=== PATIENT | female | born 1935 | race Caucasian/White ===

== ENCOUNTER → 2019-01-08 | Outpatient (CLI) | payer OTHER ==
[~2019-01-08] MED LIST: ESCITALOPRAM OX10 MG PO; FUROSEMIDE40 MG PO; LISINOPRIL20 MG PO; LORAZEPAM0.5 MG PO
[2019-01-08 10:50] LABS: BASO % 0.4 % (0.0-1.0); EOS # 0.1 10*3/uL (0.0-0.4); EOS % 1.3 % (1.0-4.0); HEMOGLOBIN 12.3 g/dl (12.0-16.0); LYMPH # 1.2 10*3/uL (1.3-4.4); LYMPH % 12.7 % (27.0-41.0); MEAN CORPUSCULAR HGB 29.6 pg (27.0-31.0); MEAN CORPUSCULAR HGB CONC 31.5 g/dl (33.0-37.0); MEAN PLATELET VOLUME 11.3 fl (9.6-12.3); MONO # 0.8 10*3/uL (0.1-1.0); NEUT # 7.3 10*3/uL (2.3-7.9); NEUT % 76.6 % (47.0-73.0); PLATELET COUNT AUTOMATED 204 10*3/uL (130-400); RED BLOOD COUNT 4.15 10*6/uL (4.10-5.10); WHITE BLOOD COUNT 9.5 10*3/uL (4.8-10.8)
[2019-01-08 11:02] LABS: ALBUMIN 3.9 gm/dl (3.1-4.5); ALKALINE PHOSPHATASE 79 U/L (45-117); BUN 18 mg/dl (7-24); CHLORIDE 108 mmol/L (98-107); CHOLESTEROL 192 mg/dL (<200); CREATININE 1.03 mg/dL (0.55-1.02); POTASSIUM 4.4 mmol/L (3.5-5.1); SGOT/AST 13 IU/L (3-35); SGPT/ALT 20 U/L (12-78); SODIUM 141 mmol/L (136-145); TRIGLYCERIDES 116 mg/dl (<150); VLDL CHOLESTEROL 23 mg/dL (6-40)
[2019-01-08 11:10] LABS: HDL CHOLESTEROL 56 mg/dl (40-60); LDL CHOLESTEROL 113 mg/dL (9-159)
== END | disposition home or self-care (01) ==
LOC: LAB 10:02
PROVIDERS: Family Medicine
DX: E78.00 Pure hypercholesterolemia, unspecified (principal); R53.83 Other fatigue; I10 Essential (primary) hypertension

== ENCOUNTER 2019-03-21 12:22 | Inpatient (IN) | payer OTHER ==
[~2019-03-21] VITALS: Ht 162.5 cm; Wt 82.8 kg
--- NOTE | ~2019-03-21 | PR ---
[place], [place] PROGRESS NOTE [id number] UNIT #: [id number] ROOM: 505 DOCTOR: JORJE MUNOZ MD BIRTHDATE: [birth year] DOS: 03/22/2019 SUBJECTIVE: The patient without precordial chest pains or discomfort anymore. Cardiac enzymes were improving and she is scheduled for a cardiac stress test tomorrow. OBJECTIVE: VITAL SIGNS: Blood pressure 102/61, heart rate 69 beats per minute, breathing 18 times per minute, temperature 98 degrees Fahrenheit. HEENT AND NECK: Exam within normal limits. CARDIOVASCULAR SYSTEM: Heart rate is regular in rate and rhythm. S1 and S2 normally audible. LUNGS: Clear to auscultation. ABDOMEN: Soft, nontender. No obvious organomegaly. Bowel sounds are present. EXTREMITIES: Without significant cyanosis or edema. IMPRESSION: 1. The patient with minimally positive cardiac enzymes, troponin I levels, scheduled for a cardiac stress test tomorrow. She is asymptomatic now. Dr. Phillip, her yard hostler is following. 2. Major depression, recurrent, mild, treated and controlled with Lexapro. 3. Benign essential hypertension, treated and controlled with lisinopril. 4. Generalized anxiety disorder. The patient remains on lorazepam as needed. 5. Non-ST segment elevation acute myocardial infarction. The patient is scheduled for cardiac stress testing tomorrow. JORJE MUNOZ MD CM:PNTRANS 1523 0021 JORJE MUNOZ MD 03/23/19 0021 interface
--- NOTE | ~2019-03-21 | ST ---
[place], [place] EXERCISE STRESS TEST REPORT NAME: SERGIO YANES UNIT #: [id number] ROOM: 505 DOCTOR: TAMMY TELLO,JORJE Kelley BIRTHDATE: [birth year] DOS: 03/23/2019 LEXISCAN CARDIOLITE STRESS TEST The patient presently admitted with minimally elevated cardiac enzymes and recurrent precordial chest pains and chest pressure, was tested with a Lexiscan Cardiolite stress test. The patient's baseline EKG was normal, showed normal sinus rhythm with a heart rate of 65 beats per minute, normal cardiac axis, no significant ST-T abnormality. The patient was injected with Lexiscan and remained in normal sinus rhythm without any acute ST-T abnormality. The patient was injected with 0.4 mg of IV Lexiscan and 40 seconds later with Cardiolite nuclear injection. Heart rate ranged between 65-98 beats per minute and blood pressure ranged between 98 systolic over 60 diastolic to 140 systolic over 62 diastolic. The patient mostly remained asymptomatic. No angina symptoms. IMPRESSION: 1. Normal EKG part of the Lexiscan Cardiolite stress test. 2. Nuclear scan results to be reported by clinical trials specialist later today. JORJE MUNOZ MD CM:STRESS:EXERCISE STRESS TEST REPORT [id number] JORJE MUNOZ MD
--- NOTE | ~2019-03-21 | EKG ---
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
--- NOTE | ~2019-03-21 | EKG ---
[place], [place] ELECTROCARDIOGRAM REPORT NAME: SERGIO YANES UNIT #: [id number] ROOM: 505 DOCTOR: ZEENAT DRAFT REPORT BIRTHDATE: [birth year] [facility] Test Date: 2019-03-21 Test Time: 12:29:59 Pat Name: SERGIO YANES Department: Room: 505 Gender: F Curer Acid Drum: Armida Warren : 1935 Requested By: JOANNE LIU Order Number: [id number] Reading MD: Harsha Carlson Measurements Intervals [place] Rate: 72 P: 72 MI: 209 QRS: -44 QRSD: 111 T: 86 QT: 401 QTc: 439 Interpretive Statements Sinus rhythm LVH with IVCD, LAD and secondary repol abnrm No previous ECG available for comparison Electronically Signed On 03-21-2019 12:38:37 PDT by Harsha Carlson CM:EKGRPT:ELECTROCARDIOGRAM REPORT [id number] JOANNE EPPERSON DRAFT REPORT JOANNE LIU MD
--- NOTE | ~2019-03-21 | WRIGHTHP ---
[place], [place] PATIENT HISTORY AND PHYSICAL EXAM NAME: SERGIO YANES [facility] #: [id number] UNIT #: [id number] ROOM: [facility] DOCTOR: JORJE MUNOZ MD BIRTHDATE: [birth year] DOS: 03/21/2019 HISTORY OF PRESENT ILLNESS: The patient is an 83-year-old female with a past medical history of: 1. Generalized anxiety disorder. 2. Major depression, recurrent, mild. Generalized anxiety disorder, presented to the Emergency Department with recurrent complaints of chest discomfort and indigestion feeling with shortness of breath episodes recurrent for 3 days. The patient's cardiac enzymes were found to be elevated to 0.28 and she was admitted to a monitored bed with Cardiology on consult. The patient is not having these symptoms anymore. No GI or urinary symptoms other than mentioned above. REVIEW OF SYSTEMS: RESPIRATORY: Occasional shortness of breath with chest discomfort precordial. No nausea, vomiting or diarrhea. CARDIOVASCULAR SYSTEM: Recurrent indigestion and chest discomfort with shortness of breath for 3 days. FAMILY HISTORY: Noncontributory. HOME MEDICATIONS: Furosemide, Lexapro, lisinopril, lorazepam. FAMILY HISTORY: Noncontributory. SOCIAL HISTORY: Denies smoking cigarettes, alcohol and drug abuse. ALLERGIES: No known drug allergies. PHYSICAL EXAMINATION: GENERAL: Alert, oriented x 3, in no visible distress, moderately obese, BMI of 31.3. HEENT AND NECK: Extraocular movements are intact. Sclerae are anicteric. Oral mucosa is moist and clean. No obvious facial weakness. Neck is supple without any lymphadenopathy. No thyromegaly. No JVD. No carotid arterial bruits. LUNGS: Clear to auscultation. No wheezing. No rhonchi. CARDIOVASCULAR SYSTEM: Heart rate is regular in rate and rhythm. S1 and S2 normally audible. No significant murmur or any other abnormal cardiac sounds. ABDOMEN: Soft, nontender. No obvious organomegaly. Bowel sounds are present. No obvious herniation. EXTREMITIES: Without significant cyanosis or edema. Warm to touch. CENTRAL NERVOUS SYSTEM: Alert and oriented x 3. Cranial nerves II-XII are intact. Speech is normal. The patient is able to move all extremities. Normal muscle strength. Deep tendon reflexes are equal on both sides. Plantars were downgoing. LABORATORY DATA: Troponin level of 0.283. Chest x-ray without acute abnormality. BUN and creatinine 28 and 1.03, hemoglobin 11.2. [place], [place] PATIENT HISTORY AND PHYSICAL EXAM NAME: SERGIO YANES UNIT #: [id number] ROOM: [facility] DOCTOR: JORJE MUNOZ MD BIRTHDATE: [birth year] IMPRESSION: 1. Acute non-ST segment elevation myocardial infarction with slight elevation of troponin I level. Cardiology consulted to follow the patient. Her clinical account specialist is Dr. Phillip. The patient probably needs a heart catheterization. 2. Major depression, recurrent, mild, treated and controlled with Lexapro. 3. Benign essential hypertension, treated and controlled with lisinopril. 4. Generalized anxiety disorder, treated with lorazepam. JORJE MUNOZ MD CM:HISPHYS:PATIENT HISTORY AND PHYSICAL EXAMINATION 175 [id number] JORJE MUNOZ MD 03/21/191829 interface
--- NOTE | ~2019-03-21 | CON ---
[place], [place] REPORT OF CONSULTATION NAME: SERGIO YANES UNIT #: [id number] ROOM: 505 DOCTOR: ANTONETTE SANCHEZ MD BIRTHDATE: [birth year] DOS: 03/22/2019 I am covering for Dr. Phillip. HISTORY OF PRESENT ILLNESS: An 83-year-old female with past medical history of anxiety, depression, admitted via the Emergency Room, complaining of had some indigestion symptoms, shortness of breath for the last 3 days. The patient was found to have an elevated troponin of 0.28 came down to 0.25. Never had any chest discomfort. The patient is not having any symptoms anymore. No GI or urinary symptoms other than as mentioned above. No acute EKG changes suggestion of myocardial injury or infarction. REVIEW OF SYSTEMS: CONSTITUTIONAL: No fever, no chills. HEENT: No visual disturbances or hearing problems. CARDIOVASCULAR SYSTEM: Recurrent indigestion. No chest discomfort. RESPIRATORY: No shortness of breath now. NEUROLOGIC: No syncope. PAST MEDICAL HISTORY: Significant for hypertension. HOME MEDICATIONS: Lisinopril, furosemide. ALLERGIES: None. SOCIAL HISTORY: Not a smoker. PHYSICAL EXAMINATION: GENERAL: The patient is alert, oriented x 3. VITAL SIGNS: Blood pressure today is 138/77. The patient is in sinus rhythm. NECK: Supple, no JVD. LUNGS: Clear. HEART: Sounds are regular. NEUROLOGIC: Stable. LABORATORY DATA: Hemoglobin 11.2, hematocrit 35.3. Creatinine is 1. Troponin as mentioned 0.25, maximum was 0.29. EKG, sinus rhythm, left anterior fascicular block, left ventricular hypertrophy. IMPRESSION AND PLAN: The patient with elevated troponin with a history of hypertension and indigestion with risk factors without acute EKG changes, probable acute coronary syndrome, setup with a Lexiscan Cardiolite stress test, add small dose of beta blockers as ordered. Continue the aspirin and we will follow up. Thank you for this interesting consultation. [place], [place] REPORT OF CONSULTATION NAME: SERGIO YANES [place] UNIT #: [id number] ROOM: 505 DOCTOR: ANTONETTE SANCHEZ MD BIRTHDATE: [birth year] ANTONETTE SANCHEZ MD CM:CONSTR:REPORT OF CONSULTATION 1019 03/22/19 1835 interface
--- NOTE | ~2019-03-21 | DS ---
[place], [place] DISCHARGE SUMMARY NAME: SERGIO YANES UNIT #: [id number] ROOM: 505 DOCTOR: JORJE MUNOZ MD BIRTHDATE: [birth year] DOS: 03/23/2019 DISCHARGE DIAGNOSES: 1. Complaints of indigestion, precordial chest discomfort and minimally positive cardiac enzymes. The patient was taken for cardiac stress test today. Cardiolite result is still pending. 2. Generalized anxiety disorder. 3. Major depression, recurrent, mild. HOSPITAL COURSE: The patient was admitted with some chest discomfort and indigestion symptoms, angina equivalent with minimally positive cardiac enzymes. Cardiology was consulted who recommended a cardiac stress test, for which the patient was taken for stress testing today. Nuclear scan results are still pending and if normal, she can be discharged back to alf, otherwise Cardiology to decide. Major depression, recurrent, mild, treated and controlled with Lexapro. Generalized anxiety disorder, treated and controlled with lorazepam as needed. Non-ST segment elevation acute AL. As mentioned above, cardiac stress test still incomplete, Cardiology on consult to read nuclear scan later today. The patient has been symptom free now and insisting on going home. LABORATORY DATA: Cardiac enzymes are ranging between 0.257 to 0.290. Hemoglobin 11.2, otherwise normal CBC. Normal serum electrolytes, bilirubin, liver enzymes. Chest x-ray without any acute abnormality. DISCHARGE MANAGEMENT: Metoprolol 25 mg, aspirin 81 mg a day, furosemide 40 mg a day, Lexapro 10 mg a day, lisinopril 20 mg b.i.d., lorazepam 0.5 mg daily p.r.n. for anxiety. [place], [place] DISCHARGE SUMMARY NAME: SERGIO YANES UNIT #: [id number] ROOM: 505 DOCTOR: JORJE MUNOZ MD BIRTHDATE: [birth year] JORJE MUNOZ MD CM:DISCHARG 1325 1338 JORJE MUNOZ MD 04/07/19 1110 interface
--- NOTE | ~2019-03-21 | PR ---
[place], [place] PROGRESS NOTE [id number] UNIT #: [id number] ROOM: 505 DOCTOR: SYLVIA HARRELL MD BIRTHDATE: [birth year] DOS: 03/23/2019 SUBJECTIVE: The patient is known to me. She had some degree of aortic stenosis in the past, essential hypertension. She presented to the hospital with 1-month of indigestion-like feeling along with shortness of breath, often symptoms occur in the morning or early afternoon. Her troponin I level was slightly increased and Lexiscan Cardiolite study demonstrated ischemia in the inferior and inferolateral segments. LV ejection fraction was high normal. IMPRESSION: This patient has unstable angina, possible NSTEMI and now has a positive stress test, which I think would go along with indigestion and shortness of breath because of the RCA is likely to be involved. Her son was in the room and I recommend a diagnostic heart catheterization with selective coronary angiogram. Risks and the benefits including CVA, VT, , hematoma, vascular injury, adrenal insufficiency were discussed. She understood and son and her are agreeable to have the procedure done. I think it is very safe for her to be discharged tomorrow morning and her son can drive her to the hospital as she is very adamant about not using ambulance service. SYLVIA HARRELL MD CM:PNTRANS 1823 0102 SYLVIA HARRELL MD 03/24/19 0425 interface
--- NOTE | ~2019-03-21 | EKG ---
[place], [place] ELECTROCARDIOGRAM REPORT NAME: SERGIO YANES UNIT #: [id number] ROOM: 505 DOCTOR: ZEENAT DRAFT REPORT BIRTHDATE: [birth year] [facility] Test Date: 2019-03-21 Test Time: 15:09:29 Pat Name: SERGIO YANES Department: Room: 505 Gender: F Service Superintendent: Armida Warren : 1935 Requested By: JOANNE LIU Order Number: [id number] Reading MD: Harsha Carlson Measurements Intervals [place] Rate: 66 P: 77 VA: 216 QRS: -43 QRSD: 115 T: 67 QT: 430 QTc: 451 Interpretive Statements Sinus rhythm Borderline prolonged VA interval Left anterior fascicular block Left ventricular hypertrophy No previous ECG available for comparison Electronically Signed On 03-22-2019 9:11:39 PDT by Harsha Carlson CM:EKGRPT:ELECTROCARDIOGRAM REPORT 1509 0911 JOANNE EPPERSON DRAFT REPORT JOANNE LIU MD
[2019-03-21 12:30] VITALS: BP 171/70
[2019-03-21 12:47] LABS: BASO % 0.4 % (0.0-1.0); EOS # 0.1 10*3/uL (0.0-0.4); HEMATOCRIT 35.3 % (37.0-47.0); HEMOGLOBIN 11.2 g/dl (12.0-16.0); LYMPH # 1.3 10*3/uL (1.3-4.4); LYMPH % 15.8 % (27.0-41.0); MEAN CELL VOLUME 93.6 fl (81.0-99.0); MEAN CORPUSCULAR HGB 29.7 pg (27.0-31.0); MEAN CORPUSCULAR HGB CONC 31.7 g/dl (33.0-37.0); MEAN PLATELET VOLUME 10.7 fl (9.6-12.3); MONO # 0.7 10*3/uL (0.1-1.0); MONO % 8.8 % (3.0-9.0); NEUT % 73.8 % (47.0-73.0); PLATELET COUNT AUTOMATED 176 10*3/uL (130-400); RED BLOOD COUNT 3.77 10*6/uL (4.10-5.10); WHITE BLOOD COUNT 8.1 10*3/uL (4.8-10.8)
[2019-03-21 12:59] LABS: ACT PARTIAL THROMBO TIME 25.2 SECONDS (20.0-32.1); INTERNATIONAL NORM RATIO 0.9 (2.0-3.5)
[2019-03-21 13:04] LABS: ALBUMIN 3.7 gm/dl (3.1-4.5); ALKALINE PHOSPHATASE 79 U/L (45-117); BUN 28 mg/dl (7-24); CHLORIDE 106 mmol/L (98-107); CREATININE 1.03 mg/dL (0.55-1.02); POTASSIUM 3.8 mmol/L (3.5-5.1); SGOT/AST 10 IU/L (3-35); SGPT/ALT 16 U/L (12-78); SODIUM 142 mmol/L (136-145); TOTAL PROTEIN 7.2 gm/dL (6.4-8.2)
[2019-03-21 13:19] VITALS: BP 125/64
[2019-03-21 15:20] VITALS: BP 150/55
[2019-03-21 16:00] VITALS: BP 124/78
[2019-03-21] MEDS ORDERED: ESCITALOPRAM OX10 MG PO (16:08)
[2019-03-21] MEDS ORDERED: LISINOPRIL20 MG PO (16:08)
[2019-03-21] MEDS ORDERED: LORAZEPAM0.5 MG PO (16:09)
[2019-03-21] MEDS ORDERED: FUROSEMIDE40 MG PO (16:10)
[2019-03-21 20:00] VITALS: BP 136/51
[2019-03-22] VITALS: BP 116/49
[2019-03-22 08:00] VITALS: BP 138/77
[2019-03-22 12:00] VITALS: BP 102/61
[2019-03-22 16:00] VITALS: BP 120/50
[2019-03-22 20:00] VITALS: BP 126/56
[2019-03-23] VITALS: BP 109/57
[2019-03-23 08:00] VITALS: BP 148/74
[2019-03-23 12:00] VITALS: BP 133/52
[2019-03-23 16:00] VITALS: BP 128/59
[2019-03-23 20:00] VITALS: BP 109/61
[2019-03-24] VITALS: BP 102/39
[2019-03-24 00:30] VITALS: BP 104/50
== END 2019-03-24 07:30 | disposition other institution (70) | DRG 281 ==
LOC: ED 12:22 → 5E 14:08 → EDHOLD 14:08 → 5E 15:04
PROVIDERS: Emergency Medicine; ADMIT Internal Medicine
PROC: 3E073KZ Introduction of Other Diagnostic Substance into Coronary Artery, Percutaneous Approach (ICD-10-PCS; principal; 2019-03-23)
PROC: 4A02XM4 Measurement of Cardiac Total Activity, External Approach (ICD-10-PCS; principal; 2019-03-23)
DX: I21.4 Non-ST elevation (NSTEMI) myocardial infarction (principal); F33.0 Major depressive disorder, recurrent, mild; F41.1 Generalized anxiety disorder; K30 Functional dyspepsia; I10 Essential (primary) hypertension; I20.0 Unstable angina

== ENCOUNTER → 2020-01-25 | Outpatient (CLI) | payer OTHER ==
[2020-01-25 09:52] LABS: BASO # 0.1 10*3/uL (0.0-0.1); BASO % 0.6 % (0.0-1.0); EOS # 0.1 10*3/uL (0.0-0.4); EOS % 1.3 % (1.0-4.0); HEMATOCRIT 36.5 % (37.0-47.0); LYMPH # 1.3 10*3/uL (1.3-4.4); LYMPH % 15.7 % (27.0-41.0); MEAN CELL VOLUME 98.6 fl (81.0-99.0); MEAN CORPUSCULAR HGB 30.5 pg (27.0-31.0); MEAN PLATELET VOLUME 10.6 fl (9.6-12.3); MONO # 0.9 10*3/uL (0.1-1.0); MONO % 11.2 % (3.0-9.0); NEUT # 5.7 10*3/uL (2.3-7.9); NEUT % 70.8 % (47.0-73.0); PLATELET COUNT AUTOMATED 223 10*3/uL (130-400); RED CELL DISTRI WIDTH 12.8 % (0-14.5)
[2020-01-25 10:24] LABS: ALBUMIN 3.9 gm/dl (3.1-4.5); CREATININE 1.38 mg/dL (0.55-1.02); FREE T4 0.83 ng/dl (0.76-1.46); POTASSIUM 4.9 mmol/L (3.5-5.1); TOTAL PROTEIN 7.5 gm/dL (6.4-8.2)
[2020-01-25 10:29] LABS: THYROID STIM HORMONE (HS) 3.01 uIU/ml (0.358-4.75)
[2020-01-25 11:27] LABS: VITAMIN D, 25-HYDROXY 11.8 ng/mL (30-100)
== END | disposition home or self-care (01) ==
LOC: LAB 09:21
PROVIDERS: Internal Medicine
DX: I12.9 Hypertensive chronic kidney disease with stage 1 through stage 4 chronic kidney disease, or unspecified chronic kidney disease (principal); N18.2 Chronic kidney disease, stage 2 (mild); E78.2 Mixed hyperlipidemia; E55.9 Vitamin D deficiency, unspecified; R73.9 Hyperglycemia, unspecified

== ENCOUNTER → 2020-11-24 | Outpatient (CLI) | payer OTHER ==
[2020-11-24 10:48] LABS: BASO % 0.5 % (0.0-1.0); EOS # 0.1 10*3/uL (0.0-0.4); HEMATOCRIT 34.9 % (37.0-47.0); LYMPH % 13.4 % (27.0-41.0); MEAN CELL VOLUME 96.4 fl (81.0-99.0); MEAN CORPUSCULAR HGB 30.1 pg (27.0-31.0); MEAN CORPUSCULAR HGB CONC 31.2 g/dl (33.0-37.0); MEAN PLATELET VOLUME 10.1 fl (9.6-12.3); MONO # 0.7 10*3/uL (0.1-1.0); MONO % 9.4 % (3.0-9.0); NEUT # 5.5 10*3/uL (2.3-7.9); NEUT % 75.3 % (47.0-73.0); PLATELET COUNT AUTOMATED 196 10*3/uL (130-400); RED BLOOD COUNT 3.62 10*6/uL (4.10-5.10); RED CELL DISTRI WIDTH 12.7 % (0-14.5); WHITE BLOOD COUNT 7.3 10*3/uL (4.8-10.8)
[2020-11-24 11:16] LABS: ALBUMIN 3.9 gm/dl (3.1-4.5); CREATININE 1.07 mg/dL (0.55-1.02); POTASSIUM 4.8 mmol/L (3.5-5.1)
[2020-11-24 11:25] LABS: VITAMIN D, 25-HYDROXY 23.5 ng/mL (30-100)
[2020-11-24 11:26] LABS: FREE T4 0.81 ng/dl (0.76-1.46); THYROID STIM HORMONE (HS) 2.28 uIU/ml (0.358-4.75); TOTAL PROTEIN 7.4 gm/dL (6.4-8.2)
== END | disposition home or self-care (01) ==
LOC: LAB 10:18
PROVIDERS: ATTEND Internal Medicine
DX: Z00.01 Encounter for general adult medical examination with abnormal findings (principal); I12.9 Hypertensive chronic kidney disease with stage 1 through stage 4 chronic kidney disease, or unspecified chronic kidney disease; N18.2 Chronic kidney disease, stage 2 (mild); E55.9 Vitamin D deficiency, unspecified; E78.2 Mixed hyperlipidemia

== ENCOUNTER → 2020-11-29 | Outpatient (CLI) | payer OTHER | END | disposition home or self-care (01) | LOC: LAB 14:32 | PROVIDERS: ATTEND Internal Medicine | DX: D64.9 Anemia, unspecified (principal) ==

== ENCOUNTER → 2020-12-09 | Outpatient (CLI) | payer OTHER | END | disposition home or self-care (01) | LOC: CARD 10-26 09:30 | PROVIDERS: ATTEND Internal Medicine | DX: I08.3 Combined rheumatic disorders of mitral, aortic and tricuspid valves (principal); I27.20 Pulmonary hypertension, unspecified; I70.0 Atherosclerosis of aorta ==

== ENCOUNTER → 2021-02-24 | Outpatient (CLI) | payer OTHER ==
[~2021-02-24] MED LIST changes: +ABILIFY2 MG PO; +APRESOLINE25 MG PO; +CARVEDILOL6.25 MG PO; +COREG6.25 MG PO; +CYMBALTA60 MG PO; +PLAVIX75 M1 PO; +ZOCOR40 MG PO
== END | disposition home or self-care (01) ==
LOC: LAB 08:15
PROVIDERS: ATTEND Internal Medicine
DX: I12.9 Hypertensive chronic kidney disease with stage 1 through stage 4 chronic kidney disease, or unspecified chronic kidney disease (principal); N18.31 Chronic kidney disease, stage 3a; M16.12 Unilateral primary osteoarthritis, left hip; I25.10 Atherosclerotic heart disease of native coronary artery without angina pectoris; I35.0 Nonrheumatic aortic (valve) stenosis

== ENCOUNTER 2021-03-07 10:08 | Inpatient (IN) | payer OTHER ==
[~2021-03-07] VITALS: Ht 165.1 cm; Wt 90.5 kg
[~2021-03-07 10:08] MED LIST changes: -ABILIFY2 MG PO; -APRESOLINE25 MG PO; -CARVEDILOL6.25 MG PO; -COREG6.25 MG PO; -CYMBALTA60 MG PO; -PLAVIX75 M1 PO; -ZOCOR40 MG PO
[2021-03-07 10:15] VITALS: BP 128/67
[2021-03-07 10:47] LABS: BASO % 0.4 % (0.0-1.0); EOS # 0.1 10*3/uL (0.0-0.4); EOS % 1.4 % (1.0-4.0); HEMATOCRIT 33.2 % (37.0-47.0); LYMPH # 0.9 10*3/uL (1.3-4.4); MEAN CELL VOLUME 97.6 fl (81.0-99.0); MEAN CORPUSCULAR HGB 29.7 pg (27.0-31.0); MEAN CORPUSCULAR HGB CONC 30.4 g/dl (33.0-37.0); MEAN PLATELET VOLUME 10.9 fl (9.6-12.3); MONO # 0.8 10*3/uL (0.1-1.0); MONO % 10.7 % (3.0-9.0); NEUT # 5.2 10*3/uL (2.3-7.9); NEUT % 74.1 % (47.0-73.0); PLATELET COUNT AUTOMATED 165 10*3/uL (130-400); RED CELL DISTRI WIDTH 12.7 % (0-14.5); WHITE BLOOD COUNT 7.1 10*3/uL (4.8-10.8)
[2021-03-07 11:01] LABS: ALBUMIN 3.5 gm/dl (3.1-4.5); CREATININE 1.13 mg/dL (0.55-1.02); POTASSIUM 5.2 mmol/L (3.5-5.1)
[2021-03-07 13:00] VITALS: BP 130/70
[2021-03-07] MEDS ORDERED: COREG6.25 MG PO (14:42)
[2021-03-07] MEDS ORDERED: ZOCOR40 MG PO (14:42)
[2021-03-07] MEDS ORDERED: ABILIFY2 MG PO (14:42)
[2021-03-07] MEDS ORDERED: CYMBALTA60 MG PO (14:43)
[2021-03-07] MEDS ORDERED: PLAVIX75 M1 PO (14:43)
[2021-03-07] MEDS ORDERED: APRESOLINE25 MG PO (14:57)
[2021-03-07 16:00] VITALS: BP 118/53
[2021-03-07 20:00] VITALS: BP 130/71
[2021-03-08] VITALS: BP 133/40
[2021-03-08 02:22] LABS: BILIRUBIN Negative (Negative); BLOOD Negative (Negative); CLARITY Clear (Clear); COLOR Yellow (Yellow); GLUCOSE Negative (Negative); KETONE Negative (Negative); LEUKO ESTERASE 1+ (Negative); NITRITE Negative (Negative); SPECIFIC GRAVITY 1.015 (1.001-1.030)
[2021-03-08 05:52] VITALS: BP 140/55
[2021-03-08 06:13] LABS: BUN 22 mg/dl (7-24); CHLORIDE 107 mmol/L (98-107); CREATININE 0.92 mg/dL (0.55-1.02); POTASSIUM 5.2 mmol/L (3.5-5.1); SODIUM 140 mmol/L (136-145)
[2021-03-08 08:00] VITALS: BP 152/67
[2021-03-08 12:00] VITALS: BP 134/54; BP 135/76
[2021-03-08 16:00] VITALS: BP 122/62
[2021-03-08 20:00] VITALS: BP 121/56
[2021-03-09] VITALS: BP 106/45
[2021-03-09 05:57] VITALS: BP 139/52
[2021-03-09 08:00] VITALS: BP 149/49
[2021-03-09] MEDS ORDERED: CARVEDILOL6.25 MG PO (08:40)
[2021-03-09 09:04] LABS: BUN 23 mg/dl (7-24); CHLORIDE 107 mmol/L (98-107); CREATININE 1.01 mg/dL (0.55-1.02); POTASSIUM 4.4 mmol/L (3.5-5.1); SODIUM 139 mmol/L (136-145)
== END 2021-03-09 10:50 | disposition home or self-care (01) | DRG 640 ==
LOC: ED 10:08 → 4E 11:26 → EDHOLD 11:26 → 4E 13:33
PROVIDERS: Family Medicine; Internal Medicine Nephrology; ADMIT Internal Medicine; ATTEND Internal Medicine
DX: E87.5 Hyperkalemia (principal); N17.0 Acute kidney failure with tubular necrosis; I10 Essential (primary) hypertension; I25.10 Atherosclerotic heart disease of native coronary artery without angina pectoris; M16.12 Unilateral primary osteoarthritis, left hip; F32.9 Major depressive disorder, single episode, unspecified; F41.1 Generalized anxiety disorder; Z95.5 Presence of coronary angioplasty implant and graft

== ENCOUNTER → 2021-06-21 | Outpatient (CLI) | payer OTHER ==
[~2021-06-21] MED LIST changes: +ABILIFY2 MG PO; +APRESOLINE25 MG PO; +CARVEDILOL6.25 MG PO; +COREG6.25 MG PO; +CYMBALTA60 MG PO; +PLAVIX75 M1 PO; +ZOCOR40 MG PO
== END | disposition home or self-care (01) ==
LOC: US 14:10
PROVIDERS: ATTEND Internal Medicine
DX: R60.0 Localized edema (principal)

== ENCOUNTER 2021-07-25 17:10 | Emergency (ER) | payer OTHER ==
[2021-07-25 17:43] LABS: BASO % 0.5 % (0.0-1.0); EOS # 0.1 10*3/uL (0.0-0.4); EOS % 1.1 % (1.0-4.0); HEMATOCRIT 27.2 % (37.0-47.0); LYMPH # 0.7 10*3/uL (1.3-4.4); LYMPH % 11.2 % (27.0-41.0); MEAN CELL VOLUME 96.8 fl (81.0-99.0); MEAN CORPUSCULAR HGB 30.2 pg (27.0-31.0); MEAN CORPUSCULAR HGB CONC 31.3 g/dl (33.0-37.0); MEAN PLATELET VOLUME 9.7 fl (9.6-12.3); MONO # 0.7 10*3/uL (0.1-1.0); MONO % 10.7 % (3.0-9.0); NEUT # 4.8 10*3/uL (2.3-7.9); PLATELET COUNT AUTOMATED 160 10*3/uL (130-400); RED BLOOD COUNT 2.81 10*6/uL (4.10-5.10); RED CELL DISTRI WIDTH 13.7 % (0-14.5); WHITE BLOOD COUNT 6.4 10*3/uL (4.8-10.8)
[2021-07-25 17:59] LABS: CREATININE 1.35 mg/dL (0.55-1.02); POTASSIUM 3.6 mmol/L (3.5-5.1); TOTAL PROTEIN 6.5 gm/dL (6.4-8.2)
== END 2021-07-25 20:12 | disposition home or self-care (01) ==
LOC: ED 17:10
PROVIDERS: Physician Assistant
DX: I11.0 Hypertensive heart disease with heart failure (principal); I50.9 Heart failure, unspecified; Z79.899 Other long term (current) drug therapy

== ENCOUNTER 2021-09-18 16:26 | Inpatient (IN) | payer OTHER ==
[2021-09-18] VITALS: BP 118/58
[~2021-09-18] VITALS: Ht 162.5 cm; Wt 92.6 kg
[~2021-09-18 16:26] MED LIST changes: +ALDACTONE25 MG PO
[2021-09-18 17:08] VITALS: BP 114/56
[2021-09-18 17:52] LABS: BASO % 0.3 % (0.0-1.0); EOS # 0.1 10*3/uL (0.0-0.4); EOS % 1.2 % (1.0-4.0); HEMATOCRIT 29.8 % (37.0-47.0); LYMPH # 0.8 10*3/uL (1.3-4.4); LYMPH % 12.2 % (27.0-41.0); MEAN CELL VOLUME 93.4 fl (81.0-99.0); MEAN CORPUSCULAR HGB 29.5 pg (27.0-31.0); MEAN CORPUSCULAR HGB CONC 31.5 g/dl (33.0-37.0); MONO # 0.6 10*3/uL (0.1-1.0); MONO % 9.3 % (3.0-9.0); NEUT # 4.9 10*3/uL (2.3-7.9); NEUT % 76.7 % (47.0-73.0); PLATELET COUNT AUTOMATED 170 10*3/uL (130-400); RED BLOOD COUNT 3.19 10*6/uL (4.10-5.10); RED CELL DISTRI WIDTH 13.8 % (0-14.5); WHITE BLOOD COUNT 6.5 10*3/uL (4.8-10.8)
[2021-09-18 18:08] LABS: CREATININE 1.46 mg/dL (0.55-1.02); POTASSIUM 4.1 mmol/L (3.5-5.1); TOTAL PROTEIN 7.6 gm/dL (6.4-8.2)
[2021-09-18 18:29] VITALS: BP 117/58
[2021-09-18 20:40] VITALS: BP 104/58
[2021-09-18 22:00] VITALS: BP 118/58
[2021-09-19] VITALS: BP 118/58
[2021-09-19 06:55] LABS: CREATININE 1.51 mg/dL (0.55-1.02); POTASSIUM 4.1 mmol/L (3.5-5.1)
[2021-09-19 08:00] VITALS: BP 110/62
[2021-09-19 16:00] VITALS: BP 98/52
[2021-09-19 20:00] VITALS: BP 108/54
[2021-09-20] VITALS: BP 103/45
[2021-09-20 08:00] VITALS: BP 110/82
[2021-09-20] MEDS ORDERED: BUMETANIDE2 MG PO (08:41)
[2021-09-20 09:07] LABS: CREATININE 1.81 mg/dL (0.55-1.02); POTASSIUM 4.4 mmol/L (3.5-5.1)
[2021-09-20] MEDS ORDERED: TOPROL XL50 M1 PO (10:53)
== END 2021-09-20 13:11 | disposition home health service (06) | DRG 291 ==
LOC: ED 16:26 → 5E 19:26 → EDHOLD 19:26 → 5E 20:01
PROVIDERS: Nurse Practitioner Family; ADMIT Internal Medicine; ATTEND Internal Medicine
DX: I13.0 Hypertensive heart and chronic kidney disease with heart failure and stage 1 through stage 4 chronic kidney disease, or unspecified chronic kidney disease (principal); I50.31 Acute diastolic (congestive) heart failure; N17.0 Acute kidney failure with tubular necrosis; N18.32 Chronic kidney disease, stage 3b; F32.A Depression, unspecified; I25.10 Atherosclerotic heart disease of native coronary artery without angina pectoris; F41.0 Panic disorder [episodic paroxysmal anxiety]; E11.22 Type 2 diabetes mellitus with diabetic chronic kidney disease; I08.1 Rheumatic disorders of both mitral and tricuspid valves

== ENCOUNTER 2022-09-05 11:37 | Inpatient (IN) | payer OTHER ==
[~2022-09-05] VITALS: Ht 162.6 cm; Wt 73.6 kg
[~2022-09-05 11:37] MED LIST changes: +BUMETANIDE2 MG PO; +TOPROL XL50 M1 PO
[2022-09-05 12:10] VITALS: BP 130/58
[2022-09-05] MEDS ORDERED: SPIRONOLACTONE50 M1 PO (12:17)
[2022-09-05] MEDS ORDERED: Hydralazine Hyd25 MG PO (12:17)
[2022-09-05 13:12] LABS: BASO % 0.3 % (0.0-1.0); EOS % 0.3 % (1.0-4.0); HEMATOCRIT 34.2 % (37.0-47.0); LYMPH # 0.7 10*3/uL (1.3-4.4); LYMPH % 7.5 % (27.0-41.0); MEAN CELL VOLUME 96.1 fl (81.0-99.0); MEAN CORPUSCULAR HGB 30.6 pg (27.0-31.0); MEAN CORPUSCULAR HGB CONC 31.9 g/dl (33.0-37.0); MONO # 0.8 10*3/uL (0.1-1.0); MONO % 8.1 % (3.0-9.0); NEUT # 8.1 10*3/uL (2.3-7.9); NEUT % 83.5 % (47.0-73.0); PLATELET COUNT AUTOMATED 206 10*3/uL (130-400); RED BLOOD COUNT 3.56 10*6/uL (4.10-5.10); RED CELL DISTRI WIDTH 12.9 % (0-14.5); WHITE BLOOD COUNT 9.7 10*3/uL (4.8-10.8)
[2022-09-05 13:26] LABS: POTASSIUM 3.7 mmol/L (3.4-5.1); TOTAL PROTEIN 6.9 gm/dL (6.0-8.0)
[2022-09-05 16:00] VITALS: BP 110/73
[2022-09-05 20:00] VITALS: BP 136/65
[2022-09-06] VITALS: BP 106/48
[2022-09-06 06:34] LABS: BASO % 0.4 % (0.0-1.0); EOS # 0.1 10*3/uL (0.0-0.4); HEMATOCRIT 34.1 % (37.0-47.0); LYMPH # 0.9 10*3/uL (1.3-4.4); LYMPH % 11.1 % (27.0-41.0); MEAN CELL VOLUME 96.3 fl (81.0-99.0); MEAN CORPUSCULAR HGB 30.2 pg (27.0-31.0); MEAN CORPUSCULAR HGB CONC 31.4 g/dl (33.0-37.0); MEAN PLATELET VOLUME 10.5 fl (9.6-12.3); MONO # 0.8 10*3/uL (0.1-1.0); MONO % 9.3 % (3.0-9.0); NEUT # 6.3 10*3/uL (2.3-7.9); NEUT % 77.8 % (47.0-73.0); PLATELET COUNT AUTOMATED 218 10*3/uL (130-400); RED BLOOD COUNT 3.54 10*6/uL (4.10-5.10); RED CELL DISTRI WIDTH 12.9 % (0-14.5); WHITE BLOOD COUNT 8.1 10*3/uL (4.8-10.8)
[2022-09-06 07:11] LABS: POTASSIUM 3.9 mmol/L (3.4-5.1)
[2022-09-06 08:00] VITALS: BP 116/50
[2022-09-06 12:00] VITALS: BP 121/48
[2022-09-06 16:00] VITALS: BP 117/68
[2022-09-06 20:00] VITALS: BP 110/51
[2022-09-07] VITALS: BP 94/42
[2022-09-07 06:17] LABS: POTASSIUM 4.4 mmol/L (3.4-5.1)
[2022-09-07 08:00] VITALS: BP 118/55
[2022-09-07 12:00] VITALS: BP 129/72
[2022-09-07 16:00] VITALS: BP 115/44
[2022-09-07 20:00] VITALS: BP 132/75
[2022-09-08] VITALS: BP 121/54
[2022-09-08 08:00] VITALS: BP 131/65
[2022-09-08 12:00] VITALS: BP 137/68
[2022-09-08 12:17] LABS: POTASSIUM 4.5 mmol/L (3.4-5.1)
[2022-09-08 16:00] VITALS: BP 127/62
[2022-09-08 20:00] VITALS: BP 112/48
[2022-09-09] VITALS: BP 94/36
[2022-09-09 08:00] VITALS: BP 135/65
[2022-09-09 09:06] LABS: POTASSIUM 4.1 mmol/L (3.4-5.1)
[2022-09-09 12:00] VITALS: BP 140/57
[2022-09-09] MEDS ORDERED: ROPINIROLE HY0.25 MG PO (15:19)
[2022-09-09] MEDS ORDERED: SPIRONOLACTONE50 M1 PO (15:23)
== END 2022-09-09 15:55 | disposition home or self-care (01) | DRG 291 ==
LOC: 4E 11:37
PROVIDERS: Internal Medicine; Internal Medicine Cardiovascular Disease; ADMIT Internal Medicine; ATTEND Internal Medicine
DX: I13.0 Hypertensive heart and chronic kidney disease with heart failure and stage 1 through stage 4 chronic kidney disease, or unspecified chronic kidney disease (principal); I50.33 Acute on chronic diastolic (congestive) heart failure; N18.4 Chronic kidney disease, stage 4 (severe); F33.1 Major depressive disorder, recurrent, moderate; Z96.649 Presence of unspecified artificial hip joint; I08.1 Rheumatic disorders of both mitral and tricuspid valves; I27.20 Pulmonary hypertension, unspecified; I25.10 Atherosclerotic heart disease of native coronary artery without angina pectoris; E78.2 Mixed hyperlipidemia; F41.1 Generalized anxiety disorder; Z95.5 Presence of coronary angioplasty implant and graft; Z86.73 Personal history of transient ischemic attack (TIA), and cerebral infarction without residual deficits; Z79.899 Other long term (current) drug therapy

== ENCOUNTER → 2022-11-13 | Outpatient (CLI) | payer OTHER ==
[~2022-11-13] MED LIST changes: +Hydralazine Hyd25 MG PO; +ROPINIROLE HY0.25 MG PO; +SPIRONOLACTONE50 M1 PO
[2022-11-13 10:13] LABS: POTASSIUM 3.7 mmol/L (3.4-5.1)
== END | disposition home or self-care (01) ==
LOC: LAB 09:09
PROVIDERS: ATTEND Internal Medicine Cardiovascular Disease
DX: I10 Essential (primary) hypertension (principal); R60.1 Generalized edema

== ENCOUNTER → 2022-11-14 | Outpatient (CLI) | payer OTHER | END | disposition home or self-care (01) | LOC: RAD 12:05 | PROVIDERS: ATTEND Internal Medicine | DX: R05.9 Cough, unspecified (principal) ==

== ENCOUNTER → 2022-12-03 | Outpatient (CLI) | payer OTHER ==
[2022-12-03 11:05] LABS: POTASSIUM 4.3 mmol/L (3.4-5.1)
== END | disposition home or self-care (01) ==
LOC: LAB 10:06
PROVIDERS: ATTEND Internal Medicine Cardiovascular Disease
DX: I11.0 Hypertensive heart disease with heart failure (principal); I50.33 Acute on chronic diastolic (congestive) heart failure

== ENCOUNTER 2022-12-26 12:40 | Inpatient (IN) | payer OTHER ==
[~2022-12-26] VITALS: Ht 162.5 cm; Wt 86.9 kg
[2022-12-26 13:06] VITALS: BP 137/60
[2022-12-26 15:55] LABS: HEMATOCRIT 33.7 % (37.0-47.0); MEAN CELL VOLUME 99.1 fl (81.0-99.0); MEAN CORPUSCULAR HGB 31.2 pg (27.0-31.0); MEAN CORPUSCULAR HGB CONC 31.5 g/dl (33.0-37.0); MEAN PLATELET VOLUME 9.6 fl (9.6-12.3); PLATELET COUNT AUTOMATED 221 10*3/uL (130-400); RED CELL DISTRI WIDTH 13.8 % (0-14.5); WHITE BLOOD COUNT 17.8 10*3/uL (4.8-10.8)
[2022-12-26 15:57] LABS: MANUAL DIFF REFLEX YES
[2022-12-26 16:06] LABS: ACT PARTIAL THROMBO TIME 28.6 SECONDS (20.0-32.1)
[2022-12-26 16:16] LABS: PLATELET SUFFICIENCY NORMAL (NORMAL); TOTAL CELLS COUNTED 100 #CELLS
[2022-12-26 16:19] LABS: POTASSIUM 4.3 mmol/L (3.4-5.1); TOTAL PROTEIN 7.4 gm/dL (6.0-8.0)
[2022-12-26] MEDS ORDERED: TORSEMIDE20 MG PO (18:35)
[2022-12-26 20:20] VITALS: BP 144/60
[2022-12-26 22:02] VITALS: BP 136/51
[2022-12-27 03:16] VITALS: BP 125/55
[2022-12-27 06:08] VITALS: BP 125/58
[2022-12-27 07:51] LABS: BASO % 0.1 % (0.0-1.0); EOS % 0.1 % (1.0-4.0); HEMATOCRIT 28.9 % (37.0-47.0); LYMPH # 0.8 10*3/uL (1.3-4.4); MEAN CELL VOLUME 99.3 fl (81.0-99.0); MEAN CORPUSCULAR HGB 30.6 pg (27.0-31.0); MEAN CORPUSCULAR HGB CONC 30.8 g/dl (33.0-37.0); MEAN PLATELET VOLUME 10.2 fl (9.6-12.3); MONO # 1.2 10*3/uL (0.1-1.0); MONO % 8.7 % (3.0-9.0); NEUT # 11.6 10*3/uL (2.3-7.9); NEUT % 84.7 % (47.0-73.0); PLATELET COUNT AUTOMATED 198 10*3/uL (130-400); RED BLOOD COUNT 2.91 10*6/uL (4.10-5.10); RED CELL DISTRI WIDTH 13.8 % (0-14.5); WHITE BLOOD COUNT 13.8 10*3/uL (4.8-10.8)
[2022-12-27 08:11] LABS: POTASSIUM 4.1 mmol/L (3.4-5.1)
[2022-12-27 12:00] VITALS: BP 129/39
[2022-12-27 16:00] VITALS: BP 122/40
[2022-12-27 20:00] VITALS: BP 126/56
[2022-12-28] VITALS: BP 111/69
[2022-12-28 06:25] LABS: BASO % 0.2 % (0.0-1.0); EOS # 0.1 10*3/uL (0.0-0.4); EOS % 0.5 % (1.0-4.0); HEMATOCRIT 27.8 % (37.0-47.0); LYMPH # 0.8 10*3/uL (1.3-4.4); LYMPH % 6.8 % (27.0-41.0); MEAN CORPUSCULAR HGB 30.6 pg (27.0-31.0); MEAN CORPUSCULAR HGB CONC 30.6 g/dl (33.0-37.0); MEAN PLATELET VOLUME 10.2 fl (9.6-12.3); MONO # 1.3 10*3/uL (0.1-1.0); NEUT # 9.2 10*3/uL (2.3-7.9); NEUT % 80.9 % (47.0-73.0); PLATELET COUNT AUTOMATED 185 10*3/uL (130-400); RED BLOOD COUNT 2.78 10*6/uL (4.10-5.10); RED CELL DISTRI WIDTH 13.7 % (0-14.5); WHITE BLOOD COUNT 11.4 10*3/uL (4.8-10.8)
[2022-12-28 06:47] LABS: POTASSIUM 3.7 mmol/L (3.4-5.1)
[2022-12-28 08:00] VITALS: BP 113/85
[2022-12-28] MEDS ORDERED: CLINDAMYCIN HC300 MG PO (08:25)
== END 2022-12-28 10:03 | disposition home or self-care (01) | DRG 872 ==
LOC: ED 12:40 → EDHOLD 16:44 → 4E 16:44
PROVIDERS: Emergency Medicine; ADMIT Internal Medicine; ATTEND Internal Medicine
DX: A41.9 Sepsis, unspecified organism (principal); L03.115 Cellulitis of right lower limb; I13.0 Hypertensive heart and chronic kidney disease with heart failure and stage 1 through stage 4 chronic kidney disease, or unspecified chronic kidney disease; N18.4 Chronic kidney disease, stage 4 (severe); E78.2 Mixed hyperlipidemia; F32.A Depression, unspecified; I08.0 Rheumatic disorders of both mitral and aortic valves; I25.10 Atherosclerotic heart disease of native coronary artery without angina pectoris; F41.1 Generalized anxiety disorder; Z95.5 Presence of coronary angioplasty implant and graft